=== PATIENT | male | born 1945 | race African-American/Black ===

== ENCOUNTER → 2021-08-10 | Day surgery (SDC) | payer OTHER ==
[~2021-08-10] VITALS: Ht 174 cm; Wt 98.0 kg
[~2021-08-10] MED LIST: APRESOLINE100 MG PO; ASPIRIN EC81 MG PO; ATORVASTATIN CA20 MG PO; DEMADEX20 MG PO; DILTIAZEM ER360 MG PO; LEVOTHYROXINE75 MC1 PO; LISINOPRIL40 MG PO; METOPROLOL TAR100 MG PO; MULTI-VITAMIN1 EACH PO; ULORIC40 MG PO; VITAMIN D350 MC3 PO
[2021-08-10 08:46] LABS: HCT 47.5 % (42.0-52.0); HGB 15.7 g/dl (13.2-18.0); MCH 30.5 pg (25.0-31.0); MCHC 33.1 g/dL (32.0-36.0); MCV 92.4 fL (78.0-100.0); MPV 9.9 fL (6.0-9.5); RBC 5.14 M/uL (4.70-6.00); RDW 13.8 % (11.5-14.0); WBC 8.8 K/uL (4.0-10.5)
== END | disposition home or self-care (01) ==
LOC: FAS 07:41
PROVIDERS: Surgery
DX: Z12.11 Encounter for screening for malignant neoplasm of colon (principal); K57.30 Diverticulosis of large intestine without perforation or abscess without bleeding; Z86.010 Personal history of colon polyps; I12.9 Hypertensive chronic kidney disease with stage 1 through stage 4 chronic kidney disease, or unspecified chronic kidney disease; N18.30 Chronic kidney disease, stage 3 unspecified; Z79.82 Long term (current) use of aspirin; Z79.899 Other long term (current) drug therapy
CPT/HCPCS: 36415; J1610; J2704; J7120